=== PATIENT | female | born 1970 | race Caucasian/White ===

== ENCOUNTER 2016-07-26 12:31 | Emergency (ER) | payer BC ==
[~2016-07-26 12:31] MED LIST: GEMFIBROZIL600 MG PO; PANTOPRAZOLE SO40 MG PO
--- NOTE | 2016-07-26 14:42 | ED CLINICAL REPORT ---
Clinical Report - Physicians/Mid Levels [facility] [address] [place] [address] 07/26/2016 12:31 Patient: RIMMA RASHID Time Seen: 14:10; initial patient contact, initial documentation, patient care assumed. Arrived- By private vehicle. Historian- patient. HISTORY OF PRESENT ILLNESS Chief Complaint: SORE THROAT. This started yesterday and is still present. Pain described as severe. The patient has had a sore throat. No mouth sores, nasal discharge or congestion or ear pain. Similar symptoms previously: None. Recent medical care: The patient was seen recently in a clinic. ( went to walk in clinic yesterday, pos strep screen took x2 pills of amoxicillin, no better, feels worse, and was told to come to er). REVIEW OF SYSTEMS The patient has had fever of 102 F. No cough, difficulty breathing, chest pain, diarrhea or vomiting. Denies current . All systems otherwise negative, except as recorded above. PAST HISTORY See nurses notes. PROBLEMS: Abnormal Liver Function Test. Renal Colic. Animal Bite. Depression. Dyspnea. Cardiovascular Risk Factors. Abdominal Pain. Elevated Cholesterol. Pyelonephritis. Hypertension. Gastroenteritis. Urinary Calculi. Atypical Chest Pain. Pleurisy. Pulmonary Embolism. Factor V Leiden mutation. Anxiety Reaction. Diabetes Mellitus. Immunizations. LNMP - Last Normal Menstrual Period. --12:50 Umm Weeks R.N. ADDITIONAL SURGERIES: Adenoidectomy. Cholecystectomy. Colonoscopy []. Previous Abdominal Surgery. Shoulder Surgery. Tonsillectomy. Tubal Ligation. --12:50 Umm Weeks R.N. SOCIAL HISTORY Never smoker. No alcohol use or drug use. No recent travel. Is a local resident. ADDITIONAL NOTES The nursing notes have been reviewed with agreement regarding the chief complaint, HPI, ROS, PMH and patient medications and allergies. PHYSICAL EXAM Vital Signs: 07/26/2016 12:45 BP: 115/77. HR: 96. RR: 18. O2 saturation: 99%. Temp: 98.8 F. Have been reviewed as normal and appear to be correct. Appearance: Alert. No acute distress. Head: Normal external inspection. Eyes: Pupils equal, round and reactive to light. Conjunctivae and eyelids normal. ENT: Ears normal. Nose normal. Pharynx abnormal. Moderate generalized pharyngeal erythema with right tonsillar swelling and exudate and left tonsillar swelling and exudate (uvula swelling, no deviations). No pharyngeal vesicles or ulcerations. No right tonsillar abscess, right peritonsillitis, left tonsillar abscess or left peritonsillitis. Lips normal. Gums normal. No trismus present. Uvula midline. Neck: Lymphadenopathy. Normal inspection. Mild right anterior neck and mild left anterior neck lymphadenopathy present. Trachea midline. Thyroid normal. Neck supple. Respiratory: No respiratory distress. Skin: Normal skin color. No rash. Normal skin turgor. Extremities: Extremities exhibit normal ROM. Extremities nontender. Neuro: Oriented X 3. No motor deficit. No sensory deficit. PROGRESS AND PROCEDURES Patient counseled in person regarding the patient's stable condition and diagnosis. 14:42. Differential Diagnosis: I considered viral pharyngitis, bacterial pharyngitis, mycoplasmal pharyngitis, gonococcal pharyngitis, palatine tonsillitis, lingual tonsillitis, aphthous stomatitis, herpetic gingivostomatitis, allergic stomatitis, erythema multiforme, mononucleosis, diphtheria, Vincent's angina, peritonsillar cellulitis and peritonsillar abscess as a possible cause of sore throat in this patient. This is a partial list of diagnoses considered. Above considerations are based on history and physical exam. Differential diagnosis was discussed with patient. Disposition: Discharged home in good and improved condition (14:42). Condition: good and stable. CLINICAL IMPRESSION Acute streptococcal pharyngitis INSTRUCTIONS Alternate Tylenol (Acetaminophen) and Motrin (Ibuprofen) for fever, temperature greater than 101 degrees. Take according to label instructions. Do not work for two days. Drink plenty of fluids for the next 24 hours until better. Warnings: GENERAL WARNINGS: Return or contact your physician immediately if your condition worsens or changes unexpectedly, if not improving as expected, or if other problems arise. Specifically return if problem worsens. Prescription Medications: Amoxicillin 500 mg tablets: Take 1 orally every 8 hours for 10 days. Dispense thirty (30). No refills. Motrin 600 mg tablets: take 1 tablet orally every 6 hours as needed for pain or fever. Dispense thirty (30). No refill. Viscous 2% Lidocaine 30 mL, Maalox 60 mL and Diphenhydramine (12.5 mL/5 mL). Swish, gargle, and spit 1-2 teaspoons every 6 hours as needed. Dispense ninety (90) mL. No refills Prednisone 20 mg: take 3 orally every day for 5 days. Dispense fifteen (15). No refills. Follow-up: Follow up with your doctor in about three days even if well. Call for an appointment. Summary of care provided to patient. Understanding of the discharge instructions verbalized by patient. (Electronically signed by Jennie Alberto A.R.N.P. 07/26/2016 18:59)
--- NOTE | 2016-07-26 14:42 | ED NURSING NOTES ---
Clinical Report - Nurses [facility] [address] [place] [address] 07/26/2016 12:31 Patient: RIMMA RASHID TRIAGE Triage time 12:45 Jul 26 2016. Acuity: LEVEL 4. Chief Complaint: SORE THROAT. Alert. No acute distress. --12:51 Umm Weeks R.N. 12:45 07/26/16. BP: 115/77. HR: 96. RR: 18. O2 saturation: 99%. Temp: 98.8 F. Pain level now 05/01. --12:51 Umm Weeks R.N. Weight: 108.8 kg stated. Height/Length: 66 inches Per Patient. BMI: 38.7. --12:45 Umm Weeks R.N. Medications ClonazePAM Oral. --12:49 Umm Weeks R.N. Amoxicillin Oral. --12:50 Umm Weeks R.N. Medication/allergy information source: the patient. --12:51 Umm Weeks R.N. Allergies Sulfa Antibiotics. --12:49 Umm Weeks R.N. History Arrived by private vehicle. Historian: patient. Accompanied by family. Primary physician ([facility]). ( Step Positive - Amox. Sent here for r/o mumps by [facility].). This started yesterday. 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 PAST MEDICAL HX: Strep throat. FALL RISK ASSESSMENT: Fall risk assessment completed. No fall risk identified. NUTRITIONAL RISK ASSESSMENT: The nutritional risk assessment revealed no deficiencies. FUNCTIONAL ASSESSMENT: Functional assessment: no impairments noted. LEARNING NEEDS ASSESSMENT: The learning needs assessment revealed no barriers. SKIN INTEGRITY ASSESSMENT: Skin integrity risk assessment completed. No skin integrity risk identified. --12:51 Umm Weeks R.N. PAST MEDICAL HX: Has not received seasonal influenza immunization. --12:51 Umm Weeks R.N. PROBLEMS: Abnormal Liver Function Test. Renal Colic. Animal Bite. Depression. Dyspnea. Cardiovascular Risk Factors. Abdominal Pain. Elevated Cholesterol. Pyelonephritis. Hypertension. Gastroenteritis. Urinary Calculi. Atypical Chest Pain. Pleurisy. Pulmonary Embolism. Factor V Leiden mutation. Anxiety Reaction. Diabetes Mellitus. Immunizations. LNMP - Last Normal Menstrual Period. --12:50 Umm Weeks R.N. ADDITIONAL SURGERIES: Adenoidectomy. Cholecystectomy. Colonoscopy []. Previous Abdominal Surgery. Shoulder Surgery. Tonsillectomy. Tubal Ligation. --12:50 Umm Weeks R.N. Interventions ID band on patient. To room. --12:51 Umm Weeks R.N. NURSING PROGRESS NOTES Head of bed elevated. Two patient identifiers checked. Call light placed in reach. Side rails up x 2. Bed placed in lowest position. Brakes of bed on. Patient ready for evaluation. --13:37 Renee Jaime R.N. 13:35 07/26/16. BP: 108/59. HR: 78. RR: 22. O2 saturation: 100% on room air. Pain level now: 10/30. --13:37 Renee Jaime R.N. DISPOSITION / DISCHARGE 15:24 07/26/16. Condition at departure: improved and stable. The goals identified in the patient's plan of care were met. No learning barriers present. Discharge instructions provided and reviewed with the patient. Reviewed medication(s) side effects, precautions, dosing and course information. Prescription(s) given to the patient. Reviewed fever care instructions. Reviewed referral to a primary care physician for followup. Patient verbalized understanding. Written instructions provided in Turkish. The patient was discharged home and accompanied by spouse. She left the Emergency Department ambulatory and via private vehicle. Patient driving. FALL RISK ASSESSMENT: Fall risk assessment completed. No fall risk identified. --15:24 Emy Cortes R.N. 13:35 07/26/16. BP: 108/59. HR: 78. RR: 22. O2 saturation: 100% on room air. Pain level now: 10/30. 12:45 07/26/16. BP: 115/77. HR: 96. RR: 18. O2 saturation: 99%. Temp: 98.8 F. Pain level now 05/01. --15:24 Emy Cortes R.N. Departure time: 15:25 Jul 26 2016. --15:25 Emy Cortes R.N. Locked/Released at 07/26/2016 15:25 by Emy Cortes R.N.
--- NOTE | 2016-07-26 14:42 | ED NURSING NOTES ---
Clinical Report - Nurses [facility] [address] [place] [address] 07/26/2016 12:31 Patient: RIMMA RASHID TRIAGE Triage time 12:45 Jul 26 2016. Acuity: LEVEL 4. Chief Complaint: SORE THROAT. Alert. No acute distress. --12:51 Umm Weeks R.N. 12:45 07/26/16. BP: 115/77. HR: 96. RR: 18. O2 saturation: 99%. Temp: 98.8 F. Pain level now 05/01. --12:51 Umm Weeks R.N. Weight: 108.8 kg stated. Height/Length: 66 inches Per Patient. BMI: 38.7. --12:45 Umm Weeks R.N. Medications ClonazePAM Oral. --12:49 Umm Weeks R.N. Amoxicillin Oral. --12:50 Umm Weeks R.N. Medication/allergy information source: the patient. --12:51 Umm Weesk R.N. Allergies Sulfa Antibiotics. --12:49 Umm Weeks R.N. History Arrived by private vehicle. Historian: patient. Accompanied by family. Primary physician ([facility]). ( Step Positive - Amox. Sent here for r/o mumps by [facility].). This started yesterday. 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 PAST MEDICAL HX: Strep throat. FALL RISK ASSESSMENT: Fall risk assessment completed. No fall risk identified. NUTRITIONAL RISK ASSESSMENT: The nutritional risk assessment revealed no deficiencies. FUNCTIONAL ASSESSMENT: Functional assessment: no impairments noted. LEARNING NEEDS ASSESSMENT: The learning needs assessment revealed no barriers. SKIN INTEGRITY ASSESSMENT: Skin integrity risk assessment completed. No skin integrity risk identified. --12:51 Umm Weeks R.N. PAST MEDICAL HX: Has not received seasonal influenza immunization. --12:51 Umm Weeks R.N. PROBLEMS: Abnormal Liver Function Test. Renal Colic. Animal Bite. Depression. Dyspnea. Cardiovascular Risk Factors. Abdominal Pain. Elevated Cholesterol. Pyelonephritis. Hypertension. Gastroenteritis. Urinary Calculi. Atypical Chest Pain. Pleurisy. Pulmonary Embolism. Factor V Leiden mutation. Anxiety Reaction. Diabetes Mellitus. Immunizations. LNMP - Last Normal Menstrual Period. --12:50 Umm Weeks R.N. ADDITIONAL SURGERIES: Adenoidectomy. Cholecystectomy. Colonoscopy []. Previous Abdominal Surgery. Shoulder Surgery. Tonsillectomy. Tubal Ligation. --12:50 Umm Weeks R.N. Interventions ID band on patient. To room. --12:51 Umm Weeks R.N. NURSING PROGRESS NOTES Head of bed elevated. Two patient identifiers checked. Call light placed in reach. Side rails up x 2. Bed placed in lowest position. Brakes of bed on. Patient ready for evaluation. --13:37 Renee Jaime R.N. 13:35 07/26/16. BP: 108/59. HR: 78. RR: 22. O2 saturation: 100% on room air. Pain level now: 10/30. --13:37 Renee Jaime R.N. DISPOSITION / DISCHARGE 15:24 07/26/16. Condition at departure: improved and stable. The goals identified in the patient's plan of care were met. No learning barriers present. Discharge instructions provided and reviewed with the patient. Reviewed medication(s) side effects, precautions, dosing and course information. Prescription(s) given to the patient. Reviewed fever care instructions. Reviewed referral to a primary care physician for followup. Patient verbalized understanding. Written instructions provided in Yoruba. The patient was discharged home and accompanied by spouse. She left the Emergency Department ambulatory and via private vehicle. Patient driving. FALL RISK ASSESSMENT: Fall risk assessment completed. No fall risk identified. --15:24 Emy Cortes R.N. 13:35 07/26/16. BP: 108/59. HR: 78. RR: 22. O2 saturation: 100% on room air. Pain level now: 10/30. 12:45 07/26/16. BP: 115/77. HR: 96. RR: 18. O2 saturation: 99%. Temp: 98.8 F. Pain level now 05/01. --15:24 Emy Cortes R.N. Departure time: 15:25 Jul 26 2016. --15:25 Emy Cortes R.N. Locked/Released at 07/26/2016 15:25 by Emy Cortes R.N.
--- NOTE | 2016-07-26 19:00 | ED MAR SUMMARY ---
..... Medication Administration Record [facility] [address], [place] [id number] Patient: RIMMA RASHID Visit ID: [id number] 46y, F Weight: 108.8 kg Height/Length: 66 in BMI: 38.7 ALLERGIES: Sulfa Antibiotics
--- NOTE | 2016-07-26 19:00 | ED DISCHARGE INSTRUCTIONS ---
Patient: RIMMA RASHID General Instructions [facility] VisitID: [id number] [place] [address] 46y, F Registration Date/Time: 07/26/2016 Acute streptococcal pharyngitis INSTRUCTIONS Alternate Tylenol (Acetaminophen) and Motrin (Ibuprofen) for fever, temperature greater than 101 degrees. Take according to label instructions. Do not work for two days. Drink plenty of fluids for the next 24 hours until better. Warnings: GENERAL WARNINGS: Return or contact your physician immediately if your condition worsens or changes unexpectedly, if not improving as expected, or if other problems arise. Specifically return if problem worsens. Prescription Medications: Amoxicillin 500 mg tablets: Take 1 orally every 8 hours for 10 days. Dispense thirty (30). No refills. Motrin 600 mg tablets: take 1 tablet orally every 6 hours as needed for pain or fever. Dispense thirty (30). No refill. Viscous 2% Lidocaine 30 mL, Maalox 60 mL and Diphenhydramine (12.5 mL/5 mL). Swish, gargle, and spit 1-2 teaspoons every 6 hours as needed. Dispense ninety (90) mL. No refills Prednisone 20 mg: take 3 orally every day for 5 days. Dispense fifteen (15). No refills. Follow-up: Follow up with your doctor in about three days even if well. Call for an appointment. Summary of care provided to patient. Understanding of the discharge instructions verbalized by patient. ADDITIONAL INFORMATION Pharyngitis: Strep [Confirmed] Your test for strep throat was positive. Strep throat is a contagious illness. It is spread by coughing, kissing or by touching others after touching your mouth or nose. Symptoms include throat pain which is worse with swallowing, aching all over, headache and fever. You will be treated with an antibiotic which should make you start to feel better within 1-2 days. Home Care: Rest at home and drink plenty of fluids to avoid dehydration. No school or work for the first two days on antibiotics. You will not be contagious after this time and if you are feeling better, you can return to school or work. Take your antibiotics for a full 10 days, even if you feel better after the first few days of treatment. This is very important to prevent heart or kidney disease that can result as a complication of untreated strep throat infection. Children: Use acetaminophen (Tylenol) for fever, fussiness or discomfort. In infants over six months of age, you may use ibuprofen (Children's Motrin) instead of Tylenol. [NOTE: If your child has chronic liver or kidney disease or ever had a stomach ulcer or GI bleeding, talk with your doctor before using these medicines.] (Aspirin should never be used in anyone under 18 years of age who is ill with a fever. It may cause severe liver damage.)Adults: You may use acetaminophen (Tylenol) or ibuprofen (Motrin, Advil) to control pain or fever, unless another medicine was prescribed for this. [NOTE: If you have chronic liver or kidney disease or ever had a stomach ulcer or GI bleeding, talk with your doctor before using these medicines.] Throat lozenges or sprays (Chloraseptic and others) will reduce pain. Gargling with warm salt water will also reduce throat pain. Dissolve 1/2 teaspoon of salt in 1 glass of warm water. This is especially useful just before meals. Follow Up with your doctor or as directed by our staff if you are not improving over the next week. Get Prompt Medical Attention if any of the following occur: Fever of 100.4F (38C) oral or higher, not better with fever medication New or worsening ear pain, sinus pain or headache Painful lumps in the back of your neck Unable to swallow liquids or open your mouth wide due to throat pain Trouble breathing or noisy breathing Muffled voice New rash Fever Control (Adult) A fever is a natural reaction of the body to an illness. In most cases, the temperature itself is not harmful. It actually helps the body fight infections. A fever does not need to be treated unless you feel very uncomfortable. Home Care If you feel warm, check your temperature. If you feel very uncomfortable and your temperature is at or higher than 100.4F (38C) oral, you may take acetaminophen (Tylenol) every 4 to 6 hours. If you cant take or keep down oral medicine, ask your pharmacist for Tylenol suppositories, which you can get without a prescription. If the fever does not respond to acetaminophen within 1 hour, take ibuprofen (Advil or Motrin). If this works, keep taking the ibuprofen every 6 to 8 hours. Note: If you have chronic liver or kidney disease or ever had a stomach ulcer or GI bleeding, talk with your doctor before using these medications. If either medication alone does not keep the fever down, you may alternate the two medicines every 3 to 4 hours, only if your healthcare provider has instructed you to do so. For example, take Motrin then wait 3 hours, take Tylenol then wait 3 hours, take Motrin, and so on. Follow your healthcare providers instructions exactly. Clothing: Keep clothing light because excess body heat is lost through the skin. The fever will go up if you wear extra layers or wrap in blankets. Fluids: Fever causes the body to lose water through evaporation. Drink plenty of fluids such as water, juice, clear sodas, marina aguila, or lemonade. Do not use aspirin in anyone under 18 years of age who is ill with a fever. It can cause severe liver damage. Follow Up with your doctor or as advised by our staff if you do not get better after 48 hours. Get Prompt Medical Attention if any of the following occur: Fever does not get better after taking fever medication Fast or difficult breathing Earache, sinus pain, stiff or painful neck, headache, repeated diarrhea or vomiting You feel unusually irritable, drowsy, or confused A rash appears You feel weak or dizzy, or that you might faint Amoxicillin Trihydrate Oral tablet What is this medicine? AMOXICILLIN (a mox i ANDREA in) is a penicillin antibiotic. It is used to treat certain kinds of bacterial infections. It will not work for colds, flu, or other viral infections. How should I use this medicine? Take this medicine by mouth with a glass of water. Follow the directions on your prescription label. You may take this medicine with food or on an empty stomach. Take your medicine at regular intervals. Do not take your medicine more often than directed. Take all of your medicine as directed even if you think your are better. Do not skip doses or stop your medicine early. Talk to your data sme regarding the use of this medicine in children. While this drug may be prescribed for selected conditions, precautions do apply. What side effects may I notice from receiving this medicine? Side effects that you should report to your doctor or health foster care therapist as soon as possible: allergic reactions like skin rash, itching or hives, swelling of the face, lips, or tongue breathing problems dark urine redness, blistering, peeling or loosening of the skin, including inside the mouth seizures severe or watery diarrhea trouble passing urine or change in the amount of urine unusual bleeding or bruising unusually weak or tired yellowing of the eyes or skin Side effects that usually do not require medical attention (report to your doctor or health foster care therapist if they continue or are bothersome): dizziness headache stomach upset trouble sleeping What may interact with this medicine? amiloride control pills chloramphenicol macrolides probenecid sulfonamides tetracyclines What if I miss a dose? If you miss a dose, take it as soon as you can. If it is almost time for your next dose, take only that dose. Do not take double or extra doses. Where should I keep my medicine? Keep out of the reach of children. Store between 68 and 77 degrees F (20 and 25 degrees C). Keep bottle closed tightly. Throw away any unused medicine after the expiration date. What should I tell my health care provider before I take this medicine? They need to know if you have any of these conditions: asthma kidney disease an unusual or allergic reaction to amoxicillin, other penicillins, cephalosporin antibiotics, other medicines, foods, dyes, or preservatives or trying to get breast-feeding What should I watch for while using this medicine? Tell your doctor or health foster care therapist if your symptoms do not improve in 2 or 3 days. Take all of the doses of your medicine as directed. Do not skip doses or stop your medicine early. If you are diabetic, you may get a false positive result for sugar in your urine with certain brands of urine tests. Check with your doctor. Do not treat diarrhea with [id number] products. Contact your doctor if you have diarrhea that lasts more than 2 days or if the diarrhea is severe and watery. Ibuprofen Oral tablet What is this medicine? IBUPROFEN (eye BYOO proe fen) is a non-steroidal anti-inflammatory drug (NSAID). It is used for dental pain, fever, headaches or migraines, osteoarthritis, rheumatoid arthritis, or painful monthly periods. It can also relieve minor aches and pains caused by a cold, flu, or sore throat. How should I use this medicine? Take this medicine by mouth with a glass of water. Follow the directions on the prescription label. Take this medicine with food if your stomach gets upset. Try to not lie down for at least 10 minutes after you take the medicine. Take your medicine at regular intervals. Do not take your medicine more often than directed. A special MedGuide will be given to you by the pharmacist with each prescription and refill. Be sure to read this information carefully each time. Talk to your data sme regarding the use of this medicine in children. Special care may be needed. What side effects may I notice from receiving this medicine? Side effects that you should report to your doctor or health foster care therapist as soon as possible: allergic reactions like skin rash, itching or hives, swelling of the face, lips, or tongue black or bloody stools, blood in the urine or in vomit breathing problems changes in vision chest pain general ill feeling or flu-like symptoms nausea or vomiting redness, blistering, peeling or loosening of the skin, including inside the mouth slurred speech or weakness on one side of the body stomach pain unexplained weight gain or swelling unusually weak or tired yellowing of eyes or skin Side effects that usually do not require medical attention (report to your doctor or health foster care therapist if they continue or are bothersome): constipation or diarrhea dizziness gas or heartburn stomach upset What may interact with this medicine? Do not take this medicine with any of the following medications: cidofovir ketorolac methotrexate pemetrexed This medicine may also interact with the following medications: alcohol aspirin diuretics lithium other drugs for inflammation like prednisone warfarin What if I miss a dose? If you miss a dose, take it as soon as you can. If it is almost time for your next dose, take only that dose. Do not take double or extra doses. Where should I keep my medicine? Keep out of the reach of children. Store at room temperature between 15 and 30 degrees C (59 and 86 degrees F). Keep container tightly closed. Throw away any unused medicine after the expiration date. What should I tell my health care provider before I take this medicine? They need to know if you have any of these conditions: asthma cigarette smoker drink more than 3 alcohol containing drinks a day heart disease or circulation problems such as heart failure or leg edema (fluid retention) high blood pressure kidney disease liver disease stomach bleeding or ulcers an unusual or allergic reaction to ibuprofen, aspirin, other NSAIDS, other medicines, foods, dyes, or preservatives or trying to get breast-feeding What should I watch for while using this medicine? Tell your doctor or healthcare professional if your symptoms do not start to get better or if they get worse. This medicine does not prevent heart attack or stroke. In fact, this medicine may increase the chance of a heart attack or stroke. The chance may increase with longer use of this medicine and in people who have heart disease. If you take aspirin to prevent heart attack or stroke, talk with your doctor or health foster care therapist. Do not take other medicines that contain aspirin, ibuprofen, or naproxen with this medicine. Side effects such as stomach upset, nausea, or ulcers may be more likely to occur. Many medicines available without a prescription should not be taken with this medicine. This medicine can cause ulcers and bleeding in the stomach and intestines at any time during treatment. Ulcers and bleeding can happen without warning symptoms and can cause . To reduce your risk, do not smoke cigarettes or drink alcohol while you are taking this medicine. You may get drowsy or dizzy. Do not drive, use machinery, or do anything that needs mental alertness until you know how this medicine affects you. Do not stand or sit up quickly, especially if you are an older patient. This reduces the risk of dizzy or fainting spells. This medicine can cause you to bleed more easily. Try to avoid damage to your teeth and gums when you brush or floss your teeth. Prednisone Oral tablet What is this medicine? PREDNISONE (PRED ni sone) is a corticosteroid. It is commonly used to treat inflammation of the skin, joints, lungs, and other organs. Common conditions treated include asthma, allergies, and arthritis. It is also used for other conditions, such as blood disorders and diseases of the adrenal glands. How should I use this medicine? Take this medicine by mouth with a glass of water. Follow the directions on the prescription label. Take this medicine with food. If you are taking this medicine once a day, take it in the morning. Do not take more medicine than you are told to take. Do not suddenly stop taking your medicine because you may develop a severe reaction. Your doctor will tell you how much medicine to take. If your doctor wants you to stop the medicine, the dose may be slowly lowered over time to avoid any side effects. Talk to your data sme regarding the use of this medicine in children. Special care may be needed. What side effects may I notice from receiving this medicine? Side effects that you should report to your doctor or health foster care therapist as soon as possible: allergic reactions like skin rash, itching or hives, swelling of the face, lips, or tongue changes in emotions or moods changes in vision depressed mood eye pain fever or chills, cough, sore throat, pain or difficulty passing urine increased thirst swelling of ankles, feet Side effects that usually do not require medical attention (report to your doctor or health foster care therapist if they continue or are bothersome): confusion, excitement, restlessness headache nausea, vomiting skin problems, acne, thin and shiny skin trouble sleeping weight gain What may interact with this medicine? Do not take this medicine with any of the following medications: metyrapone mifepristone This medicine may also interact with the following medications: aminoglutethimide amphotericin B aspirin and aspirin-like medicines barbiturates certain medicines for diabetes, like glipizide or glyburide cholestyramine cholinesterase inhibitors cyclosporine digoxin diuretics ephedrine female hormones, like estrogens and control pills isoniazid ketoconazole NSAIDS, medicines for pain and inflammation, like ibuprofen or naproxen phenytoin rifampin toxoids vaccines warfarin What if I miss a dose? If you miss a dose, take it as soon as you can. If it is almost time for your next dose, talk to your doctor or health foster care therapist. You may need to miss a dose or take an extra dose. Do not take double or extra doses without advice. Where should I keep my medicine? Keep out of the reach of children. Store at room temperature between 15 and 30 degrees C (59 and 86 degrees F). Protect from light. Keep container tightly closed. Throw away any unused medicine after the expiration date. What should I tell my health care provider before I take this medicine? They need to know if you have any of these conditions: Clemente's syndrome diabetes glaucoma heart disease high blood pressure infection (especially a virus infection such as chickenpox, cold sores, or herpes) kidney disease liver disease mental illness myasthenia gravis osteoporosis seizures stomach or intestine problems thyroid disease an unusual or allergic reaction to lactose, prednisone, other medicines, foods, dyes, or preservatives or trying to get breast-feeding What should I watch for while using this medicine? Visit your doctor or health foster care therapist for regular checks on your progress. If you are taking this medicine over a prolonged period, carry an identification card with your name and address, the type and dose of your medicine, and your doctor's name and address. This medicine may increase your risk of getting an infection. Tell your doctor or health foster care therapist if you are around anyone with measles or chickenpox, or if you develop sores or blisters that do not heal properly. If you are going to have surgery, tell your doctor or health foster care therapist that you have taken this medicine within the last twelve months. Ask your doctor or health foster care therapist about your diet. You may need to lower the amount of salt you eat. This medicine may affect blood sugar levels. If you have diabetes, check with your doctor or health foster care therapist before you change your diet or the dose of your diabetic medicine. You have been given the following additional information: Pharyngitis, Strep (Confirmed) Fever Control (Adult) Amoxicillin Trihydrate Oral tablet Ibuprofen Oral tablet Prednisone Oral tablet Do not work for two days. (Electronically signed by Jennie Alberto [email or web address]. 07/26/2016 18:59)
--- NOTE | 2016-07-26 19:00 | ED MAR SUMMARY ---
..... Medication Administration Record [facility] [address] [place], [place] [id number] Patient: RIMMA RASHID Visit ID: [id number] 46y, F Weight: 108.8 kg Height/Length: 66 in BMI: 38.7 ALLERGIES: Sulfa Antibiotics
--- NOTE | 2016-07-26 19:00 | ED DISCHARGE INSTRUCTIONS ---
Patient: RIMMA RASHID General Instructions [facility] VisitID: [id number] [place] [address] 46y, F Registration Date/Time: 07/26/2016 Acute streptococcal pharyngitis INSTRUCTIONS Alternate Tylenol (Acetaminophen) and Motrin (Ibuprofen) for fever, temperature greater than 101 degrees. Take according to label instructions. Do not work for two days. Drink plenty of fluids for the next 24 hours until better. Warnings: GENERAL WARNINGS: Return or contact your physician immediately if your condition worsens or changes unexpectedly, if not improving as expected, or if other problems arise. Specifically return if problem worsens. Prescription Medications: Amoxicillin 500 mg tablets: Take 1 orally every 8 hours for 10 days. Dispense thirty (30). No refills. Motrin 600 mg tablets: take 1 tablet orally every 6 hours as needed for pain or fever. Dispense thirty (30). No refill. Viscous 2% Lidocaine 30 mL, Maalox 60 mL and Diphenhydramine (12.5 mL/5 mL). Swish, gargle, and spit 1-2 teaspoons every 6 hours as needed. Dispense ninety (90) mL. No refills Prednisone 20 mg: take 3 orally every day for 5 days. Dispense fifteen (15). No refills. Follow-up: Follow up with your doctor in about three days even if well. Call for an appointment. Summary of care provided to patient. Understanding of the discharge instructions verbalized by patient. ADDITIONAL INFORMATION Pharyngitis: Strep [Confirmed] Your test for strep throat was positive. Strep throat is a contagious illness. It is spread by coughing, kissing or by touching others after touching your mouth or nose. Symptoms include throat pain which is worse with swallowing, aching all over, headache and fever. You will be treated with an antibiotic which should make you start to feel better within 1-2 days. Home Care: Rest at home and drink plenty of fluids to avoid dehydration. No school or work for the first two days on antibiotics. You will not be contagious after this time and if you are feeling better, you can return to school or work. Take your antibiotics for a full 10 days, even if you feel better after the first few days of treatment. This is very important to prevent heart or kidney disease that can result as a complication of untreated strep throat infection. Children: Use acetaminophen (Tylenol) for fever, fussiness or discomfort. In infants over six months of age, you may use ibuprofen (Children's Motrin) instead of Tylenol. [NOTE: If your child has chronic liver or kidney disease or ever had a stomach ulcer or GI bleeding, talk with your doctor before using these medicines.] (Aspirin should never be used in anyone under 18 years of age who is ill with a fever. It may cause severe liver damage.)Adults: You may use acetaminophen (Tylenol) or ibuprofen (Motrin, Advil) to control pain or fever, unless another medicine was prescribed for this. [NOTE: If you have chronic liver or kidney disease or ever had a stomach ulcer or GI bleeding, talk with your doctor before using these medicines.] Throat lozenges or sprays (Chloraseptic and others) will reduce pain. Gargling with warm salt water will also reduce throat pain. Dissolve 1/2 teaspoon of salt in 1 glass of warm water. This is especially useful just before meals. Follow Up with your doctor or as directed by our staff if you are not improving over the next week. Get Prompt Medical Attention if any of the following occur: Fever of 100.4F (38C) oral or higher, not better with fever medication New or worsening ear pain, sinus pain or headache Painful lumps in the back of your neck Unable to swallow liquids or open your mouth wide due to throat pain Trouble breathing or noisy breathing Muffled voice New rash Fever Control (Adult) A fever is a natural reaction of the body to an illness. In most cases, the temperature itself is not harmful. It actually helps the body fight infections. A fever does not need to be treated unless you feel very uncomfortable. Home Care If you feel warm, check your temperature. If you feel very uncomfortable and your temperature is at or higher than 100.4F (38C) oral, you may take acetaminophen (Tylenol) every 4 to 6 hours. If you cant take or keep down oral medicine, ask your pharmacist for Tylenol suppositories, which you can get without a prescription. If the fever does not respond to acetaminophen within 1 hour, take ibuprofen (Advil or Motrin). If this works, keep taking the ibuprofen every 6 to 8 hours. Note: If you have chronic liver or kidney disease or ever had a stomach ulcer or GI bleeding, talk with your doctor before using these medications. If either medication alone does not keep the fever down, you may alternate the two medicines every 3 to 4 hours, only if your healthcare provider has instructed you to do so. For example, take Motrin then wait 3 hours, take Tylenol then wait 3 hours, take Motrin, and so on. Follow your healthcare providers instructions exactly. Clothing: Keep clothing light because excess body heat is lost through the skin. The fever will go up if you wear extra layers or wrap in blankets. Fluids: Fever causes the body to lose water through evaporation. Drink plenty of fluids such as water, juice, clear sodas, marnia aguila, or lemonade. Do not use aspirin in anyone under 18 years of age who is ill with a fever. It can cause severe liver damage. Follow Up with your doctor or as advised by our staff if you do not get better after 48 hours. Get Prompt Medical Attention if any of the following occur: Fever does not get better after taking fever medication Fast or difficult breathing Earache, sinus pain, stiff or painful neck, headache, repeated diarrhea or vomiting You feel unusually irritable, drowsy, or confused A rash appears You feel weak or dizzy, or that you might faint Amoxicillin Trihydrate Oral tablet What is this medicine? AMOXICILLIN (a mox i ANDREA in) is a penicillin antibiotic. It is used to treat certain kinds of bacterial infections. It will not work for colds, flu, or other viral infections. How should I use this medicine? Take this medicine by mouth with a glass of water. Follow the directions on your prescription label. You may take this medicine with food or on an empty stomach. Take your medicine at regular intervals. Do not take your medicine more often than directed. Take all of your medicine as directed even if you think your are better. Do not skip doses or stop your medicine early. Talk to your strategic development manager regarding the use of this medicine in children. While this drug may be prescribed for selected conditions, precautions do apply. What side effects may I notice from receiving this medicine? Side effects that you should report to your doctor or health rn critical care as soon as possible: allergic reactions like skin rash, itching or hives, swelling of the face, lips, or tongue breathing problems dark urine redness, blistering, peeling or loosening of the skin, including inside the mouth seizures severe or watery diarrhea trouble passing urine or change in the amount of urine unusual bleeding or bruising unusually weak or tired yellowing of the eyes or skin Side effects that usually do not require medical attention (report to your doctor or health rn critical care if they continue or are bothersome): dizziness headache stomach upset trouble sleeping What may interact with this medicine? amiloride control pills chloramphenicol macrolides probenecid sulfonamides tetracyclines What if I miss a dose? If you miss a dose, take it as soon as you can. If it is almost time for your next dose, take only that dose. Do not take double or extra doses. Where should I keep my medicine? Keep out of the reach of children. Store between 68 and 77 degrees F (20 and 25 degrees C). Keep bottle closed tightly. Throw away any unused medicine after the expiration date. What should I tell my health care provider before I take this medicine? They need to know if you have any of these conditions: asthma kidney disease an unusual or allergic reaction to amoxicillin, other penicillins, cephalosporin antibiotics, other medicines, foods, dyes, or preservatives or trying to get breast-feeding What should I watch for while using this medicine? Tell your doctor or health rn critical care if your symptoms do not improve in 2 or 3 days. Take all of the doses of your medicine as directed. Do not skip doses or stop your medicine early. If you are diabetic, you may get a false positive result for sugar in your urine with certain brands of urine tests. Check with your doctor. Do not treat diarrhea with [id number] products. Contact your doctor if you have diarrhea that lasts more than 2 days or if the diarrhea is severe and watery. Ibuprofen Oral tablet What is this medicine? IBUPROFEN (eye BYOO proe fen) is a non-steroidal anti-inflammatory drug (NSAID). It is used for dental pain, fever, headaches or migraines, osteoarthritis, rheumatoid arthritis, or painful monthly periods. It can also relieve minor aches and pains caused by a cold, flu, or sore throat. How should I use this medicine? Take this medicine by mouth with a glass of water. Follow the directions on the prescription label. Take this medicine with food if your stomach gets upset. Try to not lie down for at least 10 minutes after you take the medicine. Take your medicine at regular intervals. Do not take your medicine more often than directed. A special MedGuide will be given to you by the pharmacist with each prescription and refill. Be sure to read this information carefully each time. Talk to your strategic development manager regarding the use of this medicine in children. Special care may be needed. What side effects may I notice from receiving this medicine? Side effects that you should report to your doctor or health rn critical care as soon as possible: allergic reactions like skin rash, itching or hives, swelling of the face, lips, or tongue black or bloody stools, blood in the urine or in vomit breathing problems changes in vision chest pain general ill feeling or flu-like symptoms nausea or vomiting redness, blistering, peeling or loosening of the skin, including inside the mouth slurred speech or weakness on one side of the body stomach pain unexplained weight gain or swelling unusually weak or tired yellowing of eyes or skin Side effects that usually do not require medical attention (report to your doctor or health rn critical care if they continue or are bothersome): constipation or diarrhea dizziness gas or heartburn stomach upset What may interact with this medicine? Do not take this medicine with any of the following medications: cidofovir ketorolac methotrexate pemetrexed This medicine may also interact with the following medications: alcohol aspirin diuretics lithium other drugs for inflammation like prednisone warfarin What if I miss a dose? If you miss a dose, take it as soon as you can. If it is almost time for your next dose, take only that dose. Do not take double or extra doses. Where should I keep my medicine? Keep out of the reach of children. Store at room temperature between 15 and 30 degrees C (59 and 86 degrees F). Keep container tightly closed. Throw away any unused medicine after the expiration date. What should I tell my health care provider before I take this medicine? They need to know if you have any of these conditions: asthma cigarette smoker drink more than 3 alcohol containing drinks a day heart disease or circulation problems such as heart failure or leg edema (fluid retention) high blood pressure kidney disease liver disease stomach bleeding or ulcers an unusual or allergic reaction to ibuprofen, aspirin, other NSAIDS, other medicines, foods, dyes, or preservatives or trying to get breast-feeding What should I watch for while using this medicine? Tell your doctor or healthcare professional if your symptoms do not start to get better or if they get worse. This medicine does not prevent heart attack or stroke. In fact, this medicine may increase the chance of a heart attack or stroke. The chance may increase with longer use of this medicine and in people who have heart disease. If you take aspirin to prevent heart attack or stroke, talk with your doctor or health rn critical care. Do not take other medicines that contain aspirin, ibuprofen, or naproxen with this medicine. Side effects such as stomach upset, nausea, or ulcers may be more likely to occur. Many medicines available without a prescription should not be taken with this medicine. This medicine can cause ulcers and bleeding in the stomach and intestines at any time during treatment. Ulcers and bleeding can happen without warning symptoms and can cause . To reduce your risk, do not smoke cigarettes or drink alcohol while you are taking this medicine. You may get drowsy or dizzy. Do not drive, use machinery, or do anything that needs mental alertness until you know how this medicine affects you. Do not stand or sit up quickly, especially if you are an older patient. This reduces the risk of dizzy or fainting spells. This medicine can cause you to bleed more easily. Try to avoid damage to your teeth and gums when you brush or floss your teeth. Prednisone Oral tablet What is this medicine? PREDNISONE (PRED ni sone) is a corticosteroid. It is commonly used to treat inflammation of the skin, joints, lungs, and other organs. Common conditions treated include asthma, allergies, and arthritis. It is also used for other conditions, such as blood disorders and diseases of the adrenal glands. How should I use this medicine? Take this medicine by mouth with a glass of water. Follow the directions on the prescription label. Take this medicine with food. If you are taking this medicine once a day, take it in the morning. Do not take more medicine than you are told to take. Do not suddenly stop taking your medicine because you may develop a severe reaction. Your doctor will tell you how much medicine to take. If your doctor wants you to stop the medicine, the dose may be slowly lowered over time to avoid any side effects. Talk to your strategic development manager regarding the use of this medicine in children. Special care may be needed. What side effects may I notice from receiving this medicine? Side effects that you should report to your doctor or health rn critical care as soon as possible: allergic reactions like skin rash, itching or hives, swelling of the face, lips, or tongue changes in emotions or moods changes in vision depressed mood eye pain fever or chills, cough, sore throat, pain or difficulty passing urine increased thirst swelling of ankles, feet Side effects that usually do not require medical attention (report to your doctor or health rn critical care if they continue or are bothersome): confusion, excitement, restlessness headache nausea, vomiting skin problems, acne, thin and shiny skin trouble sleeping weight gain What may interact with this medicine? Do not take this medicine with any of the following medications: metyrapone mifepristone This medicine may also interact with the following medications: aminoglutethimide amphotericin B aspirin and aspirin-like medicines barbiturates certain medicines for diabetes, like glipizide or glyburide cholestyramine cholinesterase inhibitors cyclosporine digoxin diuretics ephedrine female hormones, like estrogens and control pills isoniazid ketoconazole NSAIDS, medicines for pain and inflammation, like ibuprofen or naproxen phenytoin rifampin toxoids vaccines warfarin What if I miss a dose? If you miss a dose, take it as soon as you can. If it is almost time for your next dose, talk to your doctor or health rn critical care. You may need to miss a dose or take an extra dose. Do not take double or extra doses without advice. Where should I keep my medicine? Keep out of the reach of children. Store at room temperature between 15 and 30 degrees C (59 and 86 degrees F). Protect from light. Keep container tightly closed. Throw away any unused medicine after the expiration date. What should I tell my health care provider before I take this medicine? They need to know if you have any of these conditions: Clemente's syndrome diabetes glaucoma heart disease high blood pressure infection (especially a virus infection such as chickenpox, cold sores, or herpes) kidney disease liver disease mental illness myasthenia gravis osteoporosis seizures stomach or intestine problems thyroid disease an unusual or allergic reaction to lactose, prednisone, other medicines, foods, dyes, or preservatives or trying to get breast-feeding What should I watch for while using this medicine? Visit your doctor or health rn critical care for regular checks on your progress. If you are taking this medicine over a prolonged period, carry an identification card with your name and address, the type and dose of your medicine, and your doctor's name and address. This medicine may increase your risk of getting an infection. Tell your doctor or health rn critical care if you are around anyone with measles or chickenpox, or if you develop sores or blisters that do not heal properly. If you are going to have surgery, tell your doctor or health rn critical care that you have taken this medicine within the last twelve months. Ask your doctor or health rn critical care about your diet. You may need to lower the amount of salt you eat. This medicine may affect blood sugar levels. If you have diabetes, check with your doctor or health rn critical care before you change your diet or the dose of your diabetic medicine. You have been given the following additional information: Pharyngitis, Strep (Confirmed) Fever Control (Adult) Amoxicillin Trihydrate Oral tablet Ibuprofen Oral tablet Prednisone Oral tablet Do not work for two days. (Electronically signed by Jennie Alberto A.R.NBrannonP. 07/26/2016 18:59)
--- NOTE | 2016-07-26 19:00 | ED MED RECONCILIATION SUMMARY ---
Patient: RIMMA RASHID Medication Reconciliation Report [facility] VisitID: [id number] [place] [address] 46y, F Registration Date/Time: 07/26/2016 Weight: 108.8 kg Height/Length: 66 in. BMI: 38.7 ALLERGIES: Sulfa Antibiotics The patient's Home Medications are listed below: THE FOLLOWING MEDICATIONS NEED TO BE RECONCILED: Amoxicillin Oral ClonazePAM Oral The source(s) of the original Home Medication information: patient The following Medications were given to the patient in the Emergency Department: None. The following Medications were prescribed to the patient: Amoxicillin 500 mg tablets: Take 1 orally every 8 hours for 10 days. Dispense thirty (30). No refills. -- Jennie Alberto, A.R.N.P. Motrin 600 mg tablets: take 1 tablet orally every 6 hours as needed for pain or fever. Dispense thirty (30). No refill. -- Jennie Alberto, A.R.N.P. Viscous 2% Lidocaine 30 mL, Maalox 60 mL and Diphenhydramine (12.5 mL/5 mL). Swish, gargle, and spit 1-2 teaspoons every 6 hours as needed. Dispense ninety (90) mL. No refills -- Jennie Alberto, A.R.N.P. Prednisone 20 mg: take 3 orally every day for 5 days. Dispense fifteen (15). No refills. -- Jennie Alberto, A.R.N.P.
--- NOTE | 2016-07-26 19:00 | ED MED RECONCILIATION SUMMARY ---
Patient: RIMMA RASHID Medication Reconciliation Report [facility] VisitID: [id number] [place] [address] 46y, F Registration Date/Time: 07/26/2016 Weight: 108.8 kg Height/Length: 66 in. BMI: 38.7 ALLERGIES: Sulfa Antibiotics The patient's Home Medications are listed below: THE FOLLOWING MEDICATIONS NEED TO BE RECONCILED: Amoxicillin Oral ClonazePAM Oral The source(s) of the original Home Medication information: patient The following Medications were given to the patient in the Emergency Department: None. The following Medications were prescribed to the patient: Amoxicillin 500 mg tablets: Take 1 orally every 8 hours for 10 days. Dispense thirty (30). No refills. -- Jennie Alberto, A.R.N.P. Motrin 600 mg tablets: take 1 tablet orally every 6 hours as needed for pain or fever. Dispense thirty (30). No refill. -- Jennie Alberto, A.R.N.P. Viscous 2% Lidocaine 30 mL, Maalox 60 mL and Diphenhydramine (12.5 mL/5 mL). Swish, gargle, and spit 1-2 teaspoons every 6 hours as needed. Dispense ninety (90) mL. No refills -- Jennie Alberto, A.R.N.P. Prednisone 20 mg: take 3 orally every day for 5 days. Dispense fifteen (15). No refills. -- Jennie Alberto, A.R.N.P.
== END 2016-07-26 15:28 | disposition home or self-care (01) ==
LOC: ED SRH 12:31
DX: J02.0 Streptococcal pharyngitis (principal); E11.9 Type 2 diabetes mellitus without complications; I10 Essential (primary) hypertension

== ENCOUNTER 2016-10-27 13:17 | Outpatient (CLI) | payer BC ==
--- NOTE | 2016-10-27 14:44 | DIAGNOSTIC IMAGING REPORT ---
PROCEDURE: CT ABDOMEN W/WO CONTRAST INDICATION: ELEVATED LFT'S TECHNIQUE: Noncontrast axial CT images through the abdomen. Following uncomplicated administration of 145 ml Isovue 300 intravenous contrast, arterial , venous phase, and delayed phase axial images through the abdomen were performed. Coronal and sagittal reformations were created. COMPARISON: None. Correlation made to chest CT 07/19/2016 and abdominal ultrasound 08/01/2015, abdomen pelvis CT 09/28/2012, remote CT abdomen pelvis 07/20/2008. FINDINGS: The unenhanced appearance of the liver demonstrates large patchy, geographic areas of decreased attenuation as well as more focal fat infiltration along the falciform ligament and in the caudate lobe. The liver margin is smooth. The size is within normal limits. Postcontrast, parenchymal heterogeneity is less apparent. The vasculature appears normal. No suspicious parenchymal lesion. Trace central biliary prominence. The gallbladder surgically absent. Extrahepatic common duct is normal caliber. No perihepatic ascites. Mild pericardial thickening. Normal sized heart. Clear lung bases. Postsurgical changes of gastric sleeve formation. Minimally enlarged spleen measuring 13.2 cm. Normal pancreas, adrenal glands, kidneys, retroperitoneal vessels, ureters, small bowel loops, and upper colon. No inflammation, free fluid, or free air. Chronic-appearing compression fracture of T10. IMPRESSION: 1. Patchy areas of hepatic steatosis. No evidence of hepatic enlargement, cirrhosis, or focal lesion. Hepatic steatosis present on prior studies as well, but developed since 2007. 2. Post cholecystectomy with appropriate caliber of the biliary tree. 3. Mild pericardial thickening, similar compared to prior studies. 4. Mild splenomegaly, chronic. 5. Gastric sleeve formation.
== END 2016-10-27 23:00 ==
LOC: CT SRH 13:17
DX: K76.0 Fatty (change of) liver, not elsewhere classified (principal)

== ENCOUNTER 2016-11-22 14:54 | Emergency (ER) | payer BC ==
--- NOTE | 2016-11-22 16:35 | DIAGNOSTIC IMAGING REPORT ---
PROCEDURE: XR CHEST 1 VIEW INDICATION: CHEST PAIN TECHNIQUE: Portable AP view 416 P m COMPARISON: Chest 10/28/2015 FINDINGS: Lungs are clear. Heart and mediastinum are normal. Thorax is normal. IMPRESSION: 1. Negative chest.
--- NOTE | 2016-11-22 18:48 | ED NURSING NOTES ---
Clinical Report - Nurses [facility] [address] [place] [address] 11/22/2016 14:55 [id number] Triage time 15:00 Nov 22 2016. Acuity: LEVEL 3. Chief Complaint: CHEST PAIN and DISCOMFORT. Alert. VITOR COMA SCORE: [place] Coma Scale: 15- eyes open spontaneously (4); best verbal response- oriented x 4 (5); best motor response- obeys commands (6). --15:17 Brad Lock R.N. 15:02 11/22/16. BP: 93/64. HR: 99 (regular and normal rate). RR: 16. O2 saturation: 100%. Temp: 99.5 F (oral). Pain level now: 5/10. Additional comments: substernal pain. --15:17 Brad Lock R.N. Weight: 99.3 kg stated. Height/Length: 65 inches Per Patient. BMI: 36.5. --15:08 Brad Lock R.N. Medications ClonazePAM Oral 0.5 mg, 2x a day as needed. SEROquel Oral 25 mg, at bedtime. TraZODone HCl Oral 500mg, at bedtime. --15:06 Brad Lock R.N. Allergies Sulfa Antibiotics. Definite Moderate(nausea, vomiting) --15:06 Brad Lock R.N. Medication/allergy information source: the patient. --15:17 Brad Lock R.N. History Arrived by private vehicle. Historian: patient. Unaccompanied. Primary physician (Amy lee). ( Chest Pain located substernally). This started today. Onset. (about 7 hours ago). She has had nausea and a cough. She has had vomiting ('just spit"). 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 SOCIAL HX: Former smoker, end date 2004. History of drug use. (Every once in a while will take a THC pill for Fibromyalgia). No alcohol use. No infectious disease exposure. ABUSE ASSESSMENT: No report of abuse. FALL RISK ASSESSMENT: Fall risk assessment completed. No fall risk identified. NUTRITIONAL RISK ASSESSMENT: The nutritional risk assessment revealed no deficiencies. FUNCTIONAL ASSESSMENT: Functional assessment: no impairments noted. LEARNING NEEDS ASSESSMENT: The learning needs assessment revealed no barriers. SKIN INTEGRITY ASSESSMENT: Skin integrity risk assessment completed. No skin integrity risk identified. --15:17 Brad Lock R.N. PROBLEMS: Pharyngitis. Strep Throat. Abnormal Liver Function Test. Renal Colic. Animal Bite. Depression. Dyspnea. Cardiovascular Risk Factors. Abdominal Pain. Elevated Cholesterol. Pyelonephritis. Gastroenteritis. Urinary Calculi. Atypical Chest Pain. Pleurisy. Pulmonary Embolism. Factor V Leiden mutation. Anxiety Reaction. Diabetes Mellitus. Immunizations. LNMP - Last Normal Menstrual Period. --15:12 Brad Lock R.N. Fibromyalgia. --15:16 Brad Lock R.N. The following entry was modified by Brad Lock R.N., 15:16 Reason - duplicate <<STRICKEN ENTRY-- Factor 5 Clotting dyscrazia. --15:14 Brad Lock R.N. --END STRIKE>>. ADDITIONAL SURGERIES: Adenoidectomy. Cholecystectomy. Colonoscopy []. Previous Abdominal Surgery. Shoulder Surgery. Tonsillectomy. Tubal Ligation. --15:12 Brad Lock R.N. Rectal spinterotomy. --15:13 Brad Lock R.N. Interventions ID and allergy band on patient. To treatment room. --15:17 Brad Lock R.N. PHYSICAL ASSESSMENT Ambulatory to room. GENERAL / NEURO / PSYCH: Alert. Oriented X 4. Appears in pain and anxious. HEENT: Mucous membranes are pink. RESPIRATORY: Breath sounds within normal limits. CVS: Normal sinus rhythm noted. Capillary refill less than 2 seconds. GI / : The patient has had nausea. SKIN: Skin is warm and dry. Normal skin turgor. --15:18 Brad Lock R.N. NURSING PROGRESS NOTES 15:11 11/22/2016 Site #1 started via IV in the left antecubital space with an 20g angiocath, with aseptic technique and good blood return; one attempt. Blood drawn: rainbow set. Labeled in the presence of the patient and sent to the lab. Saline lock flushed with 10 mL saline. --15:11 Sabrina Puri R.N. Monitoring of patient in place. Patient gowned. Reassurance given. Patient identifiers checked. Call light placed in reach. Side rails up x 2. Bed placed in lowest position. Brakes of bed on. Patient ready for evaluation- chart flagged and ED physician notified. --15:18 Brad Lock R.N. 17:22 11/22/2016 Toradol IVP 30 mg given over 1 minute(s) via site #1. Allergies verified and confirmed 5 rights. IV patency established. IV site checked: no pain, redness, or swelling. IV flushed thoroughly pre- and post-medication administration. IVP given by RN. --17:27 Noe Riley R.N. 17:24 11/22/2016 Dilaudid (HYDROmorphone HCl PF) IVP 1 mg given over 2 minute(s) via site #1. Allergies verified, confirmed 5 rights and sedative warning given to the patient. IV patency established. IV site checked: no pain, redness, or swelling. IV flushed thoroughly pre- and post-medication administration. IVP given by RN. --17:27 Noe Riley R.N. 17:00 11/22/16. BP: 116/83. HR: 103. RR: 16. O2 saturation: 95%. Pain level now: 10. --17:35 Frances Durham R.N. Cardiac rhythm: sinus tachycardia. Monitoring of patient in place. Reassurance given. Overall patient status is the same- she states feels the same. ( Pt states feeling "chest like pain..cant explain it" pain meds given as ordered.). GENERAL / NEURO / PSYCH: The patient reports anxiety. HEENT: Denies headache. RESPIRATORY: Denies difficulty breathing. CVS: The patient reports chest pain. GI / : Denies nausea. Call light placed in reach. --17:35 Frances Durham R.N. 18:37 11/22/2016 Dilaudid IVP Response: no adverse reaction pain is improving. Symptoms have improved the patient feels better. --19:02 Frances Durham R.N. 18:37 11/22/2016 Toradol IVP Response: no adverse reaction pain is improving. Symptoms have improved the patient feels better. --19:02 Frances Durham R.N. DISPOSITION / DISCHARGE 18:53 11/22/2016 Site #1 removed upon discharge. Catheter intact. Manual pressure, pressure dressing, bandaid and bandage applied. --18:58 Frances Durham R.N. Cardiac rhythm: normal sinus rhythm. Departure time: 1900 PM. Condition at departure: improved and stable. The goals identified in the patient's plan of care were met. No learning barriers present. Discharge instructions provided and reviewed with the patient. Reviewed medication(s) side effects, precautions, dosing and course information. Prescription(s) given to the patient. Patient verbalized understanding. Written instructions provided in Latvian. The patient was discharged by the physician. She was discharged home and accompanied by spouse. She left the Emergency Department ambulatory and via private vehicle. Spouse driving. FALL RISK ASSESSMENT: Fall risk assessment completed. No fall risk identified. --19:01 Frances Durham R.N. 18:45 11/22/16. BP: 116/45 (regular adult cuff) taken on the left arm, via an automated monitor, while sitting. HR: 78. RR: 12. O2 saturation: 100%. Temp: 98.3 F (oral). Pain level now: 10. --19:01 Frances Durham R.N. Locked/Released at 11/22/2016 19:02 by Frances Durham R.N.
--- NOTE | 2016-11-22 18:48 | ED CLINICAL REPORT ---
Clinical Report - Physicians/Mid Levels [facility] [address] [place] [address] 11/22/2016 14:55 Patient: RIMMA RASHID Time Seen: 15:04. Arrived- By private vehicle. Historian- patient. HISTORY OF PRESENT ILLNESS Chief Complaint: CHEST PAIN. At its maximum, severity described as moderate. When seen in the E.D., severity described as moderate. Modifying factors- worsened by cough. Not relieved by anything. This started today about 7 hours ago and is still present. Onset during light activity. It is described as burning and "pain" and it is described as located in the central chest area. No nausea, vomiting, difficulty breathing or diaphoresis. Similar symptoms previously: ( Patient states that when she has previously had chest pain. Nature of the pain has been a little bit different. However she does have a history of factor V Leiden and is concerned because she has had PEs before. Patient denies any symptoms consistent withDVT. She states her last pulmonary embolism and last known clot at all was in 2019. Patient states that her doctor did not put her on any sort of anticoagulation and had told her that if she develops any further clots that at that point she would be put on anticoagulation for life.). Recent medical care: Not recently seen/assessed. REVIEW OF SYSTEMS No fever, chills, cough, pedal edema or calf pain. No fainting episodes, headache, sore throat, blurred vision or abdominal pain. No black stools, difficulty with urination, skin rash, enlarged lymph nodes or joint pain. No bloody stools. All systems otherwise negative, except as recorded above. PAST HISTORY Problems: Fibromyalgia. Renal Colic. Depression. Elevated Cholesterol. Hypertension. Urinary Calculi. Pulmonary Embolism. Factor V Leiden mutation. Anxiety Reaction. Diabetes Mellitus. Immunizations. LNMP - Last Normal Menstrual Period. Additional Surgeries: Adenoidectomy. Cholecystectomy. Colonoscopy []. Rectal spinterotomy. Shoulder Surgery. Tonsillectomy. Tubal Ligation. Medications: ClonazePAM Oral 0.5 mg, 2x a day as needed. SEROquel Oral 25 mg, at bedtime. TraZODone HCl Oral 500mg, at bedtime. Allergies: Sulfa Antibiotics. Definite Moderate(nausea, vomiting). SOCIAL HISTORY Former smoker. History of drug use: marijuana. No alcohol use. ADDITIONAL NOTES The nursing notes have been reviewed. PHYSICAL EXAM Vital Signs: 11/22/2016 15:02 BP: 93/64. HR: 99. RR: 16. O2 saturation: 100%. Temp: 99.5 F. Pain level now: 510. Have been reviewed. Appearance: Alert. Oriented X3. No acute distress. (Patient appears mildly uncomfortable.). Eyes: Pupils equal, round and reactive to light. Eyes normal inspection. ENT: Nose normal. Neck: Normal inspection. CVS: Normal heart rate and rhythm. Heart sounds normal. Pulses normal. Respiratory: No respiratory distress. Breath sounds normal. Chest nontender. Abdomen: Soft and nontender. Back: Normal external inspection. Skin: Skin warm and dry. Normal skin color. No rash. Normal skin turgor. Extremities: Extremities exhibit normal ROM. No lower extremity edema. Neuro: Oriented X 3. No motor deficit. No sensory deficit. LABS, X-RAYS, AND EKG EKG: EKG time: (1506). No acute ischemia. Normal sinus rhythm. Rate: 103. Normal P waves. Normal ESTELA. Normal QRS complex. Normal axis. Normal ST and T waves, QT and QTc. Prior EKG unavailable. The study has been interpreted contemporaneously by me. The study has been independently viewed by me. The EKG appears to be a good tracing. Rhythm Strip #1: Time: (1504). Rate= 102. Sinus tachycardia. Regular rhythm. Narrow QRS complexes. No ectopy. Conduction normal. Normal ST segments and T waves. The study was interpreted by me. Chest X-ray: No acute disease. Normal lung markings present. Normal heart size. Mediastinum normal. Great vessels normal. Soft tissues normal. No infiltrate. No fracture. No bony lesion present. Views: AP (portable). Technique: good. The X-rays were independently viewed by me, interpreted by the radiologist and contemporaneously by me and discussed with the radiologist. Prior films were not available for comparison. Laboratory Tests: CBC w Diff: (STEPH: 11/22/2016 15:05) ( MsgRcvd 11/22/2016 16:21) Final results Test Result Flag Units (Reference) WHITE BLOOD COUNT 6.7 K/uL (4.5-11.5) RED BLOOD COUNT 4.74 M/uL (4.00-5.20) HEMOGLOBIN 14.4 gm/dL (12.0-16.0) HEMATOCRIT 41.9 % (36.0-46.0) MEAN CELL VOLUME 88 fL (80-100) MEAN CORPUSCULAR HGB 30 pg (26-34) MEAN CORPUSCULAR HGB CONC 34 g/dL (31-37) RED CELL DISTRIBUTION WIDTH 13.5 % (11.6-14.8) PLATELET COUNT 265 K/uL (150-400) NEUTROPHIL % 47.0 L % (50-75) LYMPH % 41.6 H % (25-40) MONO % 8.1 % (3-14) EOSINOPHIL % 2.8 % (0-4) BASOPHIL % 0.5 % (0-2) [id number]: (STEPH: 11/22/2016 15:05) ( MsgRcvd 11/22/2016 17:55) Final results Test Result Flag Units (Reference) D-DIMER QUANTITATIVE 0.48 ug/mLFEU (0.27-0.52) The primary value of this quantitative assay relates toits negative predictive value (i.e. exclusion) of pulmonaryembolism/deep vein thrombosis/DIC.Elevated levels of d-dimer may also occur with:, age, cancer, inflammation, liver disease,post-op, infection, hematoma, coronary disease, peripheralarteriopathy, bleeding disorders and thrombolytic treatment.Results should be correlated with other clinical andradiological data.Testing Methodology: Latex Immunoassay CHEM 13 PANEL: (STEPH: 11/22/2016 15:05) ( MsgRcvd 11/22/2016 16:51) Final results Test Result Flag Units (Reference) GLUCOSE 103 mg/dL (70-110) BUN 8 mg/dL (7-18) CREATININE 0.9 mg/dL (0.6-1.3) Estimated GFR >60 mL/min Estimated GFR- >60 mL/min Note: Persistent reduction over 3 months in eGFR<60 mL/min/1.73 m2 defines CKD. Patients with eGFR values>=60 mL/min/1.73 m2 may also have CKD if evidence ofpersistent proteinuria. Additional information may be foundat www.kidney.org. SODIUM 144 mmol/L (136-145) POTASSIUM 3.6 mmol/L (3.5-5.1) CHLORIDE 106 mmol/L (98-107) CARBON DIOXIDE 22 mmol/L (21-32) CALCIUM 9.5 mg/dL (8.5-10.1) TOTAL PROTEIN 7.8 g/dL (6.4-8.2) ALBUMIN 4.0 g/dL (3.3-5.0) BILIRUBIN, TOTAL 0.4 mg/dL (0.0-1.0) ALKALINE PHOSPHATASE 138 H U/L (46-116) AST (SGOT) 18 U/L (15-37) ALT (SGPT) 49 U/L (12-78) CPK 39 U/L (24-260) MAGNESIUM 1.6 L mg/dL (1.8-2.4) TROPONIN I <0.05 L ng/mL (0.00-1.5) TROPONIN REFERENCE RANGE:<0.1 NEGATIVE0.1-1.5 INDETERMINANT>1.5 POSITIVE . Pulse Oximetry: 11/22/2016 15:02 O2 saturation: 100%. (FIO2 - room air). Interpretation: normal. PROGRESS AND PROCEDURES Course of Care: Patient was evaluated for her chest pain. I did feel that given her history of factor V Leiden disease she should be worked up for potential coronary embolism. EKG and chest x-ray were unremarkable, other than mild sinus tachycardia. Patient's laboratory studies were also unremarkable including a negative d-dimer. Patient was treated symptomatically after which she was found to be feeling better. Patient was stable in the emergency department and no emergent condition was identified. Patient and spouse counseled in person regarding the patient's stable condition, test results, diagnosis and need for follow-up. Old medical records reviewed. Disposition: Discharged. Condition: stable and improved. CLINICAL IMPRESSION Atypical chest pain .12 lead EKG performed. INSTRUCTIONS (Your labs and x-ray looked good. There is no evidence of blood clot at this time, as your d-dimer is normal. No emergent condition has been identified.). Warnings: SEDATIVE MEDICATION: You were given sedative medication during your visit. Do not drive or operate dangerous machinery. GENERAL WARNINGS: Return or contact your physician immediately if your condition worsens or changes unexpectedly, if not improving as expected, or if other problems arise. Your Current Medications: CONTINUE TAKING THE FOLLOWING MEDICATIONS: ClonazePAM Oral : 0.5 mg 2x a day, prn. SEROquel Oral : 25 mg at bedtime. TraZODone HCl Oral : 500mg at bedtime. Prescription Medications: Tylenol with Codeine Tylenol #3 (30 mg / 300 mg) : take 1-2 tablets orally every 4 hours. Dispense twenty (20). No refill. Substitution is permissible. (prn pain and cough) Follow-up: Follow up with your doctor in seven days if not better. Understanding of the discharge instructions verbalized by patient and family. (Electronically signed by Keerthi Jewell MD 11/22/2016 21:17)
--- NOTE | 2016-11-22 18:48 | ED ORDER SUMMARY ---
..... 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 verbal order read back to Clara ARCE) (15:11 Karlaivan R.N.) EKG - ER Stat (15:01 11/22/2016 Boy Owens verbal order read back to Clara ARCE) (15:14 LNations ER Tech1) Cardiac Panel Stat (16:04 11/22/2016 Boy Owens verbal order read back to Clara ARCE) (Ack 16:07 ALLYSONoerkanwal) (16:51 EHassan R.N.) Chest 1V Urgent (16:05 11/22/2016 Boy Mars.Cally verbal order read back to Clara ARCE) (Ack 16:09 ALLYSONoerkanwal) (16:20 KHoerner) D-Dimer Urgent (17:38 11/22/2016 Clara ARCE) (17:40 KHoerner) D-Dimer Urgent (17:40 11/22/2016 EHassan R.N. per protocol) (17:40 EHassan R.N.) (Cancelled: Other17:41 EHassan R.N.) MEDICATION ORDERS: IV FLUIDS: IV Saline Lock (15:02 11/22/2016 Boy Owens verbal order read back to Clara ARCE) (15:11 Karlaivan R.N.) Toradol IV 30 mg (NOW) (17:11 11/22/2016 Clara ARCE) (17:27 JENNIFERimbeck R.N.) Dilaudid IV 1 mg (HIGH ALERT MEDICATION, NOW) (17:11 11/22/2016 Clara ARCE) (17:27 Kath Perez ORDER SHEET NOTES: [Electronically signed by Frances Durham R.N. (:11/22/2016)] [Electronically signed by Keerthi Jewell MD (21:17 11/22/2016)] [Electronically locked/signed by Frances Durham R.N. (:11/22/2016)]
--- NOTE | 2016-11-22 18:48 | ED ORDER SUMMARY ---
..... 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 verbal order read back to Clara ARCE) (15:11 Karlaivan R.N.) EKG - ER Stat (15:01 11/22/2016 Boy Owens verbal order read back to Clara ARCE) (15:14 LNations ER Tech1) Cardiac Panel Stat (16:04 11/22/2016 Boy Owens verbal order read back to Clara ARCE) (Ack 16:07 ALLYSONoerkanwal) (16:51 EHassan R.N.) Chest 1V Urgent (16:05 11/22/2016 Boy Mars.Cally verbal order read back to Clara ARCE) (Ack 16:09 ALLYSONoerkanwal) (16:20 KHoerner) D-Dimer Urgent (17:38 11/22/2016 Clara ARCE) (17:40 KHoerner) D-Dimer Urgent (17:40 11/22/2016 EHassan R.N. per protocol) (17:40 EHassan R.N.) (Cancelled: Other17:41 EHassan R.N.) MEDICATION ORDERS: IV FLUIDS: IV Saline Lock (15:02 11/22/2016 Boy Owens verbal order read back to Clara ARCE) (15:11 Karlaivan R.N.) Toradol IV 30 mg (NOW) (17:11 11/22/2016 Clara ARCE) (17:27 JENNIFERimbeck R.N.) Dilaudid IV 1 mg (HIGH ALERT MEDICATION, NOW) (17:11 11/22/2016 Clara ARCE) (17:27 Kath Perez ORDER SHEET NOTES: [Electronically signed by Frances Durham R.N. (:11/22/2016)] [Electronically signed by Keerthi Jewell MD (21:17 11/22/2016)] [Electronically locked/signed by Frances Durham R.N. (:11/22/2016)]
--- NOTE | 2016-11-22 21:18 | ED MED RECONCILIATION SUMMARY ---
Patient: RIMMA RASHID Medication Reconciliation Report [facility] VisitID: [id number] [address] [place] [address] 46y, F Registration Date/Time: 11/22/2016 Weight: 99.3 kg Height/Length: 65 in. BMI: 36.5 ALLERGIES: Sulfa Antibiotics The patient's Home Medications are listed below: CONTINUE TAKING THE FOLLOWING MEDICATIONS: ClonazePAM Oral 0.5 mg, 2x a day SEROquel Oral 25 mg, at bedtime TraZODone HCl Oral 500mg, at bedtime The source(s) of the original Home Medication information: patient The following Medications were given to the patient in the Emergency Department: Toradol [IVP] IVP 30 mg, administered: 11/22/2016 5:22:00 PM Dilaudid [IVP] IVP 1 mg, administered: 11/22/2016 5:24:00 PM The following Medications were prescribed to the patient: Tylenol with Codeine Tylenol #3 (30 mg / 300 mg) : take 1-2 tablets orally every 4 hours. Dispense twenty (20). No refill. Substitution is permissible.(prn pain and cough) -- Keerthi Jewell MD
--- NOTE | 2016-11-22 21:18 | ED MED RECONCILIATION SUMMARY ---
Patient: RIMMA RASHID Medication Reconciliation Report [facility] VisitID: [id number] [address] [place] [address] 46y, F Registration Date/Time: 11/22/2016 Weight: 99.3 kg Height/Length: 65 in. BMI: 36.5 ALLERGIES: Sulfa Antibiotics The patient's Home Medications are listed below: CONTINUE TAKING THE FOLLOWING MEDICATIONS: ClonazePAM Oral 0.5 mg, 2x a day SEROquel Oral 25 mg, at bedtime TraZODone HCl Oral 500mg, at bedtime The source(s) of the original Home Medication information: patient The following Medications were given to the patient in the Emergency Department: Toradol [IVP] IVP 30 mg, administered: 11/22/2016 5:22:00 PM Dilaudid [IVP] IVP 1 mg, administered: 11/22/2016 5:24:00 PM The following Medications were prescribed to the patient: Tylenol with Codeine Tylenol #3 (30 mg / 300 mg) : take 1-2 tablets orally every 4 hours. Dispense twenty (20). No refill. Substitution is permissible.(prn pain and cough) -- Keerthi Jewell MD
--- NOTE | 2016-11-22 21:18 | ED MAR SUMMARY ---
..... Medication Administration Record [facility] [address] [place] [address] Patient: RIMMA RASHID Visit ID: [id number] 46y, F Weight: 99.3 kg Height/Length: 65 in BMI: 36.5 ALLERGIES: Sulfa Antibiotics Given 17:22 11/22/2016 Noe Riley R.N. Medication Administered: TORADOL [IVP], Dose: 30 mg IVP over 1 minute(s), Site: #1 left AC. Medication Ordered: Toradol IV 30 mg (NOW). Given 17:24 11/22/2016 Noe Riley R.N. Medication Administered: DILAUDID [IVP] (HYDROMORPHONE HCL PF), Dose: 1 mg IVP over 2 minute(s), Site: #1 left AC. Medication Ordered: Dilaudid IV 1 mg (HIGH ALERT MEDICATION, NOW).
--- NOTE | 2016-11-22 21:18 | ED MAR SUMMARY ---
..... Medication Administration Record [facility] [address] [place] [address] Patient: RIMMA RASHID Visit ID: [id number] 46y, F Weight: 99.3 kg Height/Length: 65 in BMI: 36.5 ALLERGIES: Sulfa Antibiotics Given 17:22 11/22/2016 Noe Riley R.N. Medication Administered: TORADOL [IVP], Dose: 30 mg IVP over 1 minute(s), Site: #1 left AC. Medication Ordered: Toradol IV 30 mg (NOW). Given 17:24 11/22/2016 Noe Riley R.N. Medication Administered: DILAUDID [IVP] (HYDROMORPHONE HCL PF), Dose: 1 mg IVP over 2 minute(s), Site: #1 left AC. Medication Ordered: Dilaudid IV 1 mg (HIGH ALERT MEDICATION, NOW).
--- NOTE | 2016-11-22 21:18 | ED DISCHARGE INSTRUCTIONS ---
Patient: RIMMA RASHID General Instructions [facility] VisitID: [id number] [place] [address] 46y, F Registration Date/Time: 11/22/2016 Atypical chest pain .12 lead EKG performed. INSTRUCTIONS (Your labs and x-ray looked good. There is no evidence of blood clot at this time, as your d-dimer is normal. No emergent condition has been identified.). Warnings: SEDATIVE MEDICATION: You were given sedative medication during your visit. Do not drive or operate dangerous machinery. GENERAL WARNINGS: Return or contact your physician immediately if your condition worsens or changes unexpectedly, if not improving as expected, or if other problems arise. Your Current Medications: CONTINUE TAKING THE FOLLOWING MEDICATIONS: ClonazePAM Oral : 0.5 mg 2x a day, prn. SEROquel Oral : 25 mg at bedtime. TraZODone HCl Oral : 500mg at bedtime. Prescription Medications: Tylenol with Codeine Tylenol #3 (30 mg / 300 mg) : take 1-2 tablets orally every 4 hours. Dispense twenty (20). No refill. Substitution is permissible. (prn pain and cough) Follow-up: Follow up with your doctor in seven days if not better. Understanding of the discharge instructions verbalized by patient and family. ADDITIONAL INFORMATION Chest Pain, Noncardiac Based on your visit today, the exact cause of your chest pain is not certain. Your condition does not seem serious and your pain does not appear to be coming from your heart. However, sometimes the signs of a serious problem take more time to appear. Therefore, please watch for the warning signs listed below. Home Care: Rest today and avoid strenuous activity. Take any prescribed medicine as directed. Follow Up with your doctor or this facility as instructed or if you do not start to feel better within 24 hours. Get Prompt Medical Attention if any of the following occur: A change in the type of pain: if it feels different, becomes more severe, lasts longer, or begins to spread into your shoulder, arm, neck, jaw or back Shortness of breath or increased pain with breathing Cough with dark colored sputum (phlegm) or blood Weakness, dizziness, or fainting Fever of 100.4F (38C) or higher, or as directed by your healthcare provider Swelling, pain or redness in one leg You have been given the following additional information: Chest Pain, Noncardiac (Electronically signed by Keerthi Jewell MD 11/22/2016 21:17)
== END 2016-11-22 19:00 | disposition home or self-care (01) ==
LOC: ED SRH 14:54
DX: R07.89 Other chest pain (principal); Z86.711 Personal history of pulmonary embolism; D68.51 Activated protein C resistance; I10 Essential (primary) hypertension; E11.9 Type 2 diabetes mellitus without complications; E78.00 Pure hypercholesterolemia, unspecified; Z79.899 Other long term (current) drug therapy; Z88.2 Allergy status to sulfonamides
CPT/HCPCS: 90100; 90616; 91556; 92610; 92720; 95059